=== PATIENT | female | born 1995 | race Caucasian/White ===

== ENCOUNTER 2021-03-27 08:29 | Emergency (ER) | payer OTHER, SELFPAY ==
--- NOTE | ~2021-03-27 | XR_ITS ---
EXAMINATION: XR CHEST CLINICAL INFORMATION: Pain and cough COMPARISON: None TECHNIQUE: Frontal view of the chest was obtained. FINDINGS: No significant abnormality is noted involving the heart, lungs, mediastinum, bony thorax or soft tissues. XR/XR chest 1V IMPRESSION: Unremarkable chest examination.
[2021-03-27 08:33] VITALS: BP 149/83; PULSE 133; RESP 18; TEMP 36.6; O2SAT 99; BMI 21.1
--- NOTE | 2021-03-27 08:41 | ECG_ITS ---
Test Reason : CHEST PAIN Blood Pressure : / mmHG Vent. Rate : 110 BPM Atrial Rate : 110 BPM P-R Int : 128 ms QRS Dur : 082 ms QT Int : 334 ms P-R-T Axes : 076 090 044 degrees QTc Int : 452 ms Sinus tachycardia Rightward axis Borderline ECG No previous ECGs available Referred By: Generic ED Physician Electronically Signed By:YUE VALLES MD
--- NOTE | 2021-03-27 08:58 | ED_ITS ---
HPI - General Adult General Chief complaint: General Medical Stated complaint: racing heart chest pain -covid at home Time Seen by Provider: 03/27/21 08:39 Source: patient Limitations: no limitations History of Present Illness HPI narrative: Patient presents the ER with intermittent symptoms over the past 10 days from cough congestion with multiple home negative COVID-19 test. And palpitations now. Some chest wall pain also. Slight nausea no vomiting at this time. Positive diarrhea. No known COVID-19 exposure. Patient is fully va ccinated but not boosted. Patient states she is quite nervous and she thinks something is wrong with her. Patient denies any alcohol use drug use does not smoke tobacco. Takes no prescribed medications. Patient has no past medical history of DVT or pulmonary embolism. No past medical history of COVID-19. Related Data Allergies Allergy/AdvReac Type Severity Reaction Status Date / Time No Known Allergies Allergy Verified 03/27/21 09:04 Review of Systems Constitutional: Constitutional: Reports body ache(s), Denies chills, Reports fatigue, Denies fever(s), Reports headache(s) and Reports weakness ENT: Reports headache(s), Reports nasal congestion and Reports sore throat Cardiovascular: Cardiovascular: Reports chest pain and Denies dyspnea Respiratory: Respiratory: Reports cough (Intermittent), Denies pain with cough and Denies dyspnea Gastrointestinal: Gastrointestinal: Reports diarrhea and Reports nausea (Not currently nauseous now) Genitourinary: Genitourinary: Denies dysuria Musculoskeletal: Musculoskeletal: Denies back pain and Reports muscle weakness Neurologic: Reports headache(s) and Reports weakness Endocrine: Endocrine: Reports fatigue PMFSH Past Medical History Attestation statement: The following information was validated with the patient. Social History Social History Alcohol intake: never Patient Tobacco Use Status: Never used Tobacco Use of substances other than those prescribed or required for medical reasons: No Advance Directives: No Advance Directives Information Provided: No Patient : No Physical Exam Vital Signs: Vital Signs: Last Vital Signs Temp 99.0 F 03/27/21 09:50 Pulse 96 03/27/21 09:50 Resp 18 03/27/21 09:50 BP 134/89 03/27/21 09:50 Pulse Ox 100 03/27/21 09:50 BMI result Body Mass Index 21.1 vital signs have been reviewed as normal and appeared to be correct. Blood pressure normal. Heart rate normal. Respiration rate normal. Temperature normal. Oxygen saturation normal. Appearance: Alert. Oriented X3. Slightly anxious. Head: Normal external exam. Normocephalic. Atraumatic. Eyes: PERRLA. EOMI. Conjunctiva and sclera normal. Eyelids normal. ENT: Pharynx normal. Uvula midline. Mucosa dry Neck: Soft full range of motion CVS: Heart regular rate and rhythm no murmurs and rubs Respiratory: Breath sounds are clear to auscultation bilaterally. No accessory muscle use noted. Abdomen: Soft nontender no rebound or guarding positive bowel sounds Back: No CVA tenderness. Full range of motion noted. Skin: Skin warm and dry. Normal skin color. No ecchymosis no rashes noted Extremities: No lower extremity edema. Bilateral calves nontender patient is ambulatory moving all extremities Neuro: Oriented X 3. No motor deficit. No sensory deficit. Reflexes normal. Course Course Course Narrative: Viral syndrome Dehydration COVID-19 Influenza EKG reviewed attending sign sinus tach at 1:10 a.m. 9:06 a.m. 1000 mL normal saline IV COVID influenza swab CBC BMP pending 10:51 a.m. Symptoms have improved the patient patient's heart rate is 86. COVID influenza swab is still pending. CBC BMP reviewed 10:59 a.m. Patient is positive for COVID-19 self quarantine instructions were given patient's O2 sats on room air 99% Medical Decision Making Lab Data Result diagrams: 03/27/21 09:44 03/27/21 09:44 Labs: Lab Results 03/27/21 03/27/21 03/27/21 Range/Units 09:44 09:44 09:44 WBC 9.1 (4.8-10.8) X10*3/uL RBC 5.22 (4.20-5.50) X10*6/uL Hgb 14.9 (12.0-16.0) g/dl Hct 43.3 (37.0-47.0) % MCV 83.0 (80.0-98.0) fL MCH 28.5 (27.0-33.0) pg MCHC 34.4 (31.0-35.0) g/dl RDW 11.3 (11.0-16.0) % Plt Count 371 (160-400) X10*3/uL MPV 9.4 (9.4-12.3) fL Immature Gran % (Auto) 0.3 (0.0-0.4) % Neut % (Auto) 75.9 H (45-73) % Lymph % (Auto) 19.2 L (20-40) % [place] % (Auto) 3.9 (2-11) % Eos % (Auto) 0.4 (0-4) % Baso % (Auto) 0.3 (0-2) % Lymph # (Auto) 1.7 (1.2-4.9) X10*3/uL [place] # (Auto) 0.4 (0.1-1.2) X10*3/uL Eos # (Auto) 0.0 (0.0-0.4) X10*3/uL Baso # (Auto) 0.0 (0.0-0.2) X10*3/uL Abs Immat Gran (auto) 0.03 (0.00-0.03) X10*3/uL Absolute Neuts (auto) 6.9 (2.0-8.3) x10*3/uL Absolute Nucleated RBC 0.000 (0.0-0.012) X10*3/uL Nucleated RBC % (auto) 0.0 (0.0-0.2) /100WBC Sodium 139 (135-145) mmol/L Potassium 4.5 (3.3-5.1) mmol/L Chloride 104 (96-108) mmol/L Carbon Dioxide 28 (22-29) mmol/L Anion Gap 12 (12-20) BUN 10 (9-16) mg/dL Creatinine 0.85 (0.5-1.4) mg/dL Estim Creat Clear Calc 95.2 Estimated GFR > 60 Random Glucose 90 (60-115) mg/dL Calcium 10.2 (8.4-10.2) mg/dL Influenza Type A (PCR) NEGATIVE (Negative) Influenza Type B (PCR) NEGATIVE (Negative) RSV RNA Qual (PCR) NEGATIVE (Negative) SARS-CoV-2 RNA (RT-PCR) POSITIVE A (Negative) Imaging Data Chest x-ray: Radiologist's impression: [address] [id number] XRay Report Signed Patient: Ina Jc MR#: [id number] : 1995 Acct:[id number] Age/Sex: 26 / F ADM Date: 03/27/21 Loc: HO.ED Attending Dr: Ordering Physician: Ramon Glover Date of Service: 03/27/21 Procedure(s): XR chest 1V Accession Number(s): [id number] cc: Ramon Glover ~ EXAMINATION: XR CHEST CLINICAL INFORMATION: Pain and cough COMPARISON: None TECHNIQUE: Frontal view of the chest was obtained. FINDINGS: No significant abnormality is noted involving the heart, lungs, mediastinum, bony thorax or soft tissues. XR/XR chest 1V IMPRESSION: Unremarkable chest examination. ? Dictated By: Jose Crandall MD Signed By: <Electronically signed by Jose Crandall MD in OV> 03/27/21935 DD/ 9 TD/TT:? [employer]: [facility] [place] Discharge Plan Discharge Clinical Impression: COVID-19 Patient Disposition: Home, Self-Care Instructions: COVID-19 (Coronavirus Disease 2019) (ED) Additional Instructions: Increase fluids Tylenol Motrin for body aches or fever Self quarantine for 5 days 1 symptom free continue to wear mask for another 5 days Return if symptoms worsen Stand Alone Forms: Work/School Release
[2021-03-27 09:50] VITALS: BP 134/89; PULSE 96; RESP 18; TEMP 37.2; O2SAT 100
[2021-03-27] MEDS: 0.9 % Sodium Chloride 1,000 ML 999 ML IV (09:53)
--- NOTE | 2021-03-27 09:53 | PC.NURSE ---
st on monitor, c/o interittent cp. none now. has been drinking and eating well at home. no n/v/d. awaits results.
[2021-03-27 10:01] LABS: MANUAL DIFF FLAG NO
[2021-03-27 10:03] LABS: Basophils Percent Auto 0.3 % (0-2); Eosinophils Percent Auto 0.4 % (0-4); Hematocrit 43.3 % (37.0-47.0); Hemoglobin 14.9 g/dl (12.0-16.0); Imm Gran Abs Auto 0.03 X10*3/uL (0.00-0.03); Imm Gran Pct Auto 0.3 % (0.0-0.4); Lymphocytes Absolute Auto 1.7 X10*3/uL (1.2-4.9); Lymphocytes Percent Auto 19.2 % (20-40); Mean Corpuscular HGB Conc 34.4 g/dl (31.0-35.0); Mean Corpuscular Hemoglobin 28.5 pg (27.0-33.0); Mean Platelet Volume 9.4 fL (9.4-12.3); Monocytes Absolute Auto 0.4 X10*3/uL (0.1-1.2); Monocytes Percent Auto 3.9 % (2-11); Neutrophils Absolute Auto 6.9 x10*3/uL (2.0-8.3); Neutrophils Percent Auto 75.9 % (45-73); Platelet Count 371 X10*3/uL (160-400); Red Blood Count 5.22 X10*6/uL (4.20-5.50); Red Cell Distribution Width 11.3 % (11.0-16.0); White Blood Count 9.1 X10*3/uL (4.8-10.8)
[2021-03-27 10:19] LABS: Anion Gap 12 (12-20); Blood Urea Nitrogen 10 mg/dL (9-16); Calcium 10.2 mg/dL (8.4-10.2); Carbon Dioxide 28 mmol/L (22-29); Chloride 104 mmol/L (96-108); Creatinine Clr Calc Pharmacy 95.2; Estimated Glomerular Filt Rate > 60; Glucose Random 90 mg/dL (60-115); Potassium 4.5 mmol/L (3.3-5.1); Sodium 139 mmol/L (135-145)
[2021-03-27 10:50] LABS: Influenza A PCR NEGATIVE (Negative); Influenza B PCR NEGATIVE (Negative); Resp Syncy Virus RNA Qual PCR NEGATIVE (Negative); SARS COV2 PCR INHOUSE POSITIVE (Negative)
== END 2021-03-27 11:33 | disposition home or self-care (01) ==
PROVIDERS: Physician Assistant; Emergency Provider Student in an Organized Health Care Education/Training Program
DX: U07.1 COVID-19 (principal)
CPT/HCPCS: 0241U; 71045; 80048; 85025; 93005; 96360; 99284